=== PATIENT | female | born 1955 | race Caucasian/White ===

== ENCOUNTER 2017-12-06 18:52 | Inpatient (IN) ==
--- NOTE | 2017-12-06 19:56 | Emergency Department Report ---
General Adult HPI - General Chief complaint: Medical Clearance Stated complaint: generations clearance Time Seen by Provider: 12/06/17 19:46 Source: patient Mode of arrival: ambulatory Limitations: no limitations - History of Present Illness HPI narrative: 62-year-old female presents to the emergency department with the chief complaint of suicidal ideation with plan to overdose on sublingual nitroglycerin. She also notes paranoia. Patient has been explained to intermittent headaches for the past several weeks. She describes the headaches as mild. They are dull. No radiation. They are generalized. They come on gradually. She states she has a mild dull headache currently which is typical for her. She presents for medical clearance for admission to the [facility] facility. She notes that she has not taken her daily atenolol prior to arrival to the emergency department. She denies any self injury or self-harm. She denies homicidal ideation or plan. No other complaints or associated symptoms. She was at home when her symptoms began. Symptoms have been persistent in nature since onset. - Related Data Home Medications Medication Instructions Recorded Confirmed Aspirin/Dipyridamole 1 cap PO BID 12/06/17 12/06/17 [Aspirin-Dipyridam ER 25-200 mg] Diazepam [Valium] 2 mg PO BID 12/06/17 12/06/17 Hydrocodone/Acetaminophen 1 tab PO Q6HR 12/06/17 12/06/17 [Hydrocodon-Acetaminophn 10-325] Lisinopril/Hctz 20/12.5 [Prinzide 1 tab PO DAILY 12/06/17 12/06/17 20/12.5] Venlaflaxine XR [Effexor Xr] 75 mg PO DAILY 12/06/17 12/06/17 Allergies Allergy/AdvReac Type Severity Reaction Status Date / Time No Known Allergies Allergy Verified 12/06/17 19:45 Review of Systems Constitutional: Denies: fever, chills Eyes: Denies: eye pain, vision change ENT: Denies: ear pain, throat pain Cardiovascular: Denies: chest pain, palpitations Respiratory: Denies: cough, dyspnea Gastrointestinal: Denies: abdominal pain, nausea, vomiting, diarrhea Genitourinary: Denies: urgency, dysuria Musculoskeletal: Denies: back pain, arthralgia Integumentary: Denies: erythema, rash Neurological: Reports: headache (typical). Denies: numbness, paresthesias Psychiatric: Reports: depression, suicidal thoughts. Denies: anxiety, homicidal thoughts Endocrine: Denies: fatigue, heat or cold intolerance Hematological/Lymphatic: Denies: easy bruising, lymphadenopathy Allergic/Immunologic: Denies: facial swelling, urticaria PFSH Patient Stated Medical History Cerebrovascular Accident Yes Cataracts Yes Dental Problems Yes Hypertension Yes Gastroesophageal Reflux Yes Disease Hiatal Hernia Yes Hx Urinary Tract Infection Yes Clotting Problems Yes Osteoarthritis Yes Bipolar Disorder Yes Substance Use Disorder Yes Surgical History: Cataracts Family History: Reviewed and noncontributory. - Social History Smoking status: Never smoker Substance use type: does not use Alcohol intake frequency: does not drink Physical Exam - Limitations Limitations: no limitations - General General appearance: alert, in no apparent distress - Normal Exams: Head:: Normocephalic without trauma Eyes:: Pupils are PERRLA w/ EOMI, No scleral icterus, irritation, or foreign bodies noted ENMT:: No facial trauma, nasal exudates, pharyngeal erythema, or exudates are noted Dental: No fractured, loose, or missing teeth noted Neck:: Full range of motion, without adenopathy, JVD, bruits or thyromegaly Chest/Respirations:: Clear all hercules, with good airflow, and symmetry bilaterally Cardiovascular:: Regular rate and rhythm, without murmur or gallop, Pulses 2+ all extremities, capillary refill, <2 seconds all extremities Abdomen:: Bowel sounds positive, soft, non-tender, non-distended, no hepatosplenomegaly, masses or bruits noted Lymphatic:: No lymphadenopathy, or lymphedema noted Musculoskeletal:: No tenderness, or deformity noted, good range of motion, all extremities Integumentary:: No rashes, hives, or bruising noted, hair and nails, without abnormality Neurological:: Patient is alert, and oriented, cranial nerves, motor/sensory/ cerebellar, exams w/o gross deficits, to observation Psychiatric:: Patient exhibits (flat affect.) Course Vital Signs Temperature 98.5 F 12/06/17 19:25 Pulse Rate 88 12/06/17 19:25 Respiratory Rate 18 12/06/17 19:25 Blood Pressure 189/81 H 12/06/17 19:25 Pulse Oximetry 98 12/06/17 19:25 Temperature 98.6 F 12/07/17 00:45 Pulse Rate 64 12/07/17 03:43 Respiratory Rate 22 12/07/17 03:43 Blood Pressure 179/77 H 12/07/17 00:45 Pulse Oximetry 93 12/07/17 00:45 Medical Decision Making - [facility] Narrative Medical decision making narrative: Labs / imaging were discussed in detail with the patient and family and questions are answered. Patient is given her atenolol 25 mg by mouth 1 with improvement of hypertension. She declines offered analgesic pain medication in the emergency department. Patient is medically clear the emergency department for further evaluation and treatment in a psychiatric facility. Patient is accepted degenerations by Dr. Holloway. No further orders from accepting physician who is in agreement with the current plan of management. Patient is admitted to the generations unit in improved condition. - Differential Diagnosis depression, anxiety, suicidal ideation, metabolic disorder - Lab Data Result diagrams: 12/06/17 20:48 12/06/17 20:48 Lab Results 12/06/17 12/06/17 12/06/17 Range/Units 20:48 20:48 20:48 WBC 3.4 L (4.5-11.0) T/MM3 RBC 4.39 (4.00-5.20) M/MM3 Hgb 12.5 (12-16) GM/DL Hct 37.3 (36-46) % MCV 85.0 (80-100) UM3 MCH 28.5 (26-34) UUG MCHC 33.5 (31-37) GM/DL RDW Std Deviation 44.9 (36.9-50.2) FL Plt Count 89 L (130-400) T/MM3 MPV 8.9 L (9.4-12.4) UM3 Immature Gran % (Auto) 0.3 (0.0-0.5) % Neut % (Auto) 64.7 (33-66) % Lymph % (Auto) 27.0 (23-45) % [place] % (Auto) 6.8 (0-9.0) % Eos % (Auto) 1.2 (0-4) % Baso % (Auto) 0.0 (0-2) % Neut # (Auto) 2.2 (1.8-7.7) T/MM3 Lymph # (Auto) 0.9 L (1-4.8) T/MM3 [place] # (Auto) 0.2 (0-0.8) T/MM3 Eos # (Auto) 0.0 (0-0.5) T/MM3 Baso # (Auto) 0.0 (0-0.2) T/MM3 Abs Immat Gran (auto) 0.01 (0.00-0.03) T/MM3 Turbidity < 20 (0-20) Sodium 148 H (134-144) MEQ/L Potassium 3.5 L (3.6-5) MEQ/L Chloride 108 H (98-107) MEQ/L Carbon Dioxide 29 (22-30) MEQ/L Anion Gap 11 (5-15) meq/L BUN 20.0 H (7-17) MG/DL Creatinine 0.7 (0.7-1.2) mg/dL GFR Calculation 85 BUN/Creatinine Ratio 29 H (6-26) RATIO Glucose 122 H (65-110) MG/DL Calculated Osmolality 288 H (261-280) MOSM/KG Calcium 9.2 (8.4-10.2) MG/DL Total Bilirubin 0.60 (0.20-1.30) MG/DL Icterus Index < 2 (0-7) AST 36 (14-36) U/L ALT 17 (1-35) U/L Alkaline Phosphatase 192 H (38-126) U/L Troponin I < 0.012 (0-0.12) ng/ml Total Protein 7.9 (6.3-8.2) g/dL Albumin 3.7 (3.5-5.0) g/dL Globulin 4.2 H (2.4-3.6) G/DL Albumin/Globulin Ratio 0.9 L (1.1-2.2) RATIO Specimen Hemolysis < 15 (0-25) Ur Collection Type Urine, void-cc/notcc Urine Color Yellow (YELLOW) Urine Clarity Clear Urine pH 6.5 (5.0-8.0) Ur Specific [place] 1.020 (1.015-1.025) Urine Protein 1+ A (NEGATIVE) Urine Glucose (UA) Negative (NEGATIVE) Urine Ketones Negative (NEGATIVE) Urine Occult Blood 2+ A (NEGATIVE) Urine Nitrate Negative (NEGATIVE) Urine Bilirubin Negative (NEGATIVE) Urine Urobilinogen 1.0 (NORMAL) EU/DL Ur Leukocyte Esterase Negative (NEGATIVE) Urine RBC 5-10 H (0-3) /HPF Urine WBC None seen (0-5) /HPF Ur Squamous Epith Cells 0-5 Urine Bacteria Trace H (NEGATIVE) Ur Culture Indicated? Cult not indicated - Radiology Data CXR - No acute processes. CT head: Declined by patient. - EKG Data EKG #1 EKG results narrative: Sinus rhythm. 84 bpm. No STEMI. Disposition Clinical Impression: Suicidal ideation Disposition: 67 To [facility] Condition: Stable for Transport Time of Disposition: 21:47 (Admit. Dr. Holloway. ) - Seen By: physician
--- OUTSIDE RECORDS SUMMARY | 2017-12-06 20:04 | External Medical Summary | Continuity of Care Document ---
:1955 Author Organization [facility] There is no data. Medications There is no data. Problems Date Dx Attending Type Code Diagnosis Diagnosed By Coded 12/22/2016 F B1920 Unspecified viral hepatitis C without hepatic coma 12/22/2016 F I10 Essential (primary) hypertension 12/22/2016 F K7460 Unspecified cirrhosis of liver 12/22/2016 F R109 Unspecified abdominal pain 12/22/2016 F R42 Dizziness and giddiness 12/22/2016 F [id number] Other jail (current) drug therapy 12/22/2016 F Z8673 Personal history of transient ischemic attack (TIA), and cerebral infarction without residual deficits 09/28/2017 Samaria Amador.A., F 780.99 chronic pain [place] 09/28/2017 Jitendra Coley 780.99 chronic pain 09/28/2017 Jitendra Coley 780.99 chronic pain 09/28/2017 Jitendra Coley 780.99 chronic pain 09/28/2017 Samaria P.A., F 070.51 Hepatitis C [place] 09/28/2017 Samaria P.A., F V11.1 History of bipolar [place] disorder 09/28/2017 Samaria P.A., F 401.1 Essential [place] hypertension 09/28/2017 Samaria P.A., F 314.01 ADHD [place] 09/28/2017 Samaria P.A., F 300.02 Generalized anxiety [place] disorder 09/28/2017 Jitendra Coley 300.02 Generalized anxiety disorder 09/28/2017 Jitendra Coley 300.02 Generalized anxiety disorder 09/28/2017 Jitendra Coley 300.02 Generalized anxiety disorder 09/28/2017 Jitendra Coley 300.02 Generalized anxiety disorder 10/21/2017 Jitendra Coley 722.10 Lumbar radiculopathy Procedures Code [place] [address] Office visit - 09/28/2017 new pt, level 2 G8553 At least one 10/21/2017 Rx created at encounter was generated/sent electronically w/ a qualified [employer] system [id number] 10/21/2017 Office/outpatient visit; established patient, level 4 Results Test Result Range Urinalysis Dipstick - 11/16/13 16:02 U-BILI Negative Negative Clarity of Urine Slightly Cloudy Clear Color of Urine Yellow Yellow U-GLUC Negative g/dL Negative U-KET Negative Negative U-ARLINE Negative - Negative U-NIT Negative Negative pH of Urine 6.00 - 5.00 - 8.50 U-PRO Negative mg/dL Negative Specific gravity of Urine 1.020 1.005 - 1.030 URO 2.0 E.U./dL mg/dL Normal, .2-1 OCC BLO Small mg/dL Negative Microalbumin/Creat panel rando - 11/16/13 16:02 U-Creat 100 mg/dL 10 - 300 Microalbumin-Urine 30 mg/L 0 - 19 Microalbumin/Creatinine-Urine <30 CBC Auto Differential - 11/16/13 16:02 Basophils [count] 0.01 K/ul 0.00 - 0.20 Basophils [Pct] 0.3 % 0.00 - 2.50 Eosinophils [Pct] 1.3 % 0 - 7 Eosinophils [count] 0.05 K/ul 0.00 - 0.70 Lymphocytes [count] 1.16 K/ul 0.60 - 3.40 Lymphocytes [Pct] 29.4 % 10.00 - 50.00 Monocytes [count] 0.36 K/ul 0.00 - 0.90 Monocytes [Pct] 9.1 % 0.00 - 12.00 Neutrophils [count] 2.37 K/ul 0.20 - 6.90 Neutrophils [Pct] 59.9 % 37.00 - 80.00 RBC 4.54 M/uL 4.04 - 6.13 Hematocrit 34.5 % 37.70 - 53.70 Hemoglobin 11.3 g/dL 12.20 - 18.10 WBC 3.95 K/ul 4.60 - 10.20 Erythrocyte MCH 24.9 pg 27.00 - 31.20 Erythrocyte MCHC 32.8 g/dL 31.80 - 35.40 Erythrocyte MCV 76.0 fl 80.00 - 97.00 Platelets 116 K/ul 142.00 - 424.00 Erythrocyte MPV 9.3 fl 0.00 - 99.90 RDW 16.1 % 11.60 - 14.80 Comprehensive Metabolic Panel - 11/16/13 16:02 Albumin 3.2 g/dL 3.4 - 5.0 ALT 39 Units/L 12 - 78 AST 67 Units/L 15 - 37 TBili 0.7 mg/dL 0.0 - 1.0 BUN 14 mg/dL 7 - 18 Calcium 8.1 mg/dL 8.5 - 10.1 Bicarb 25.1 mmol/L 21.0 - 32.0 Chloride 104 mmol/L 98 - 107 Creat 0.96 mg/dL 0.6 - 1.3 "eGFR/1.73 sq M, white male" 86 - "eGFR/1.73 sq M, black male" 104 - "eGFR/1.73 sq M, white female" 64 - "eGFR/1.73 sq M, black female" 77 - Gluc 143 mg/dL 70 - 110 K 3.9 mmol/L 3.5 - 5.1 TPro 8.8 g/dL 6.4 - 8.2 Na 137 mmol/L 136 - 145 Age 58 Year(s) Alk Phos 139 Units/L 50 - 136 Lipid Panel - 11/16/13 16:02 Total/HDL Cholesterol Ratio 4.0 ratio 3.7 - 6.7 Cholesterol 119 mg/dL 0 - 199 Cholesterol in HDL 30 mg/dL 32 - 96 LDL Cholesterol 67.0 mg/dL 65 - 130 Trig 110 mg/dL 30 - 200 VLDL Choleserol 22 mg/dL 20 - 40 CPK - 11/16/13 16:02 CPK 50 Units/L 21 - 232 Thyroid Stimulating Hormone - 11/16/13 16:02 Thyroid Stimulating Hormone 0.392 u Unit(s)/mL 0.34 - 4.82 Hemoglobin A1C - 11/16/13 16:03 Hemoglobin A1C 6.6 % 4.5 - 6.2 Encounters ACCT No. Visit Discharge Status Pt. Type Provider Facility Loc./Unit Complaint Date/Time [id number] 12/22/2016 12/22/2016 DIS Emergency [place] 009 17:58:00 21:45:00 [facility] [id number] 11/09/2017 11/26/2017 DIS Outpatient Family Brijesh [facility] [id number] 13:26:30 18:50:25 Jitendra [facility] [id number] 10/29/2017 11/02/2017 DIS Outpatient Brijesh Family [facility] [id number] 14:10:11 08:53:56 Jitendra [facility] [id number] 10/21/2017 10/21/2017 DIS Outpatient Brijesh Family [facility] [id number] 15:34:20 16:31:22 Jitendra [facility] [id number] 10/21/2017 10/21/2017 DIS Outpatient Brijesh Family [facility] [id number] 15:34:20 16:31:11 Jitendra [facility] [id number] 09/28/2017 09/28/2017 DIS Outpatient Samaria Family [facility] [id number] 14:00:57 15:03:57 P.A., [facility] [id number] 01/18/2014 01/18/2014 [facility] Out[facility] [place] 15:00:00 23:59:59 [facility] [id number] 12/25/2013 12/25/2013 CLS Outpatient [place] [facility] 13:30:00 23:59:59 [facility] [id number] 12/14/2013 12/14/2013 CLS Outpatient [place] [facility] 14:30:00 23:59:59 [facility] [id number] 12/13/2013 12/13/2013 C[facility] Out[facility] [place] [facility] 14:00:00 23:59:59 [facility] [id number] 11/16/2013 11/16/2013 DIS Outpatient [place], ROCKY [place] 16:00:00 17:00:00 [facility] [id number] 11/16/2013 11/16/2013 DIS Outpatient [place] 15:13:00 16:13:00 [facility] [id number] 11/15/2013 11/15/2013 CLS Outpatient [place] 11:00:00 23:59:59 [facility] [id number] 11/09/2013 11/09/2013 CLS Outpatient [place] [facility] 13:00:00 23:59:59 [facility] [id number] 11/01/2013 11/01/2013 CLS Outpatient [place] [facility] 14:00:00 23:59:59 [facility] [id number] 10/19/2013 10/19/2013 DIS Outpatient ROCKY NASCIMENTO [facility] 15:00:00 16:00:00 [facility] [id number] 10/05/2013 10/05/2013 CLS Outpatient [place] [facility] 13:30:00 23:59:59 [facility]
--- OUTSIDE RECORDS SUMMARY | 2017-12-06 20:04 | External Medical Summary | Clinical Summary ---
:1955 Author Organization [facility] Address [address] [place] [address] Care Team Providers Name Role Phone Madhu Leigh MD Primary Care Provider Unavailable Hardeep Truong MD Unavailable Source Comments Some departments are not documenting in the electronic medical record. If you do not see the information that you expected, contact Release of Information in the Health Information Management department at [phone] for further assistance in locating additional records.[facility] Allergies No Known Allergies Current Medications Prescription Sig. Disp. Refills Start Date End Date Status verapamil SR (VERELAN) Take by mouth Active 240 mg C24P Daily. For blood pressure lisinopril/hydrochloroth Take 1 Dose by mouth Active iazide (ZESTORETIC) Daily. 20/25 tablet 1 Dose tramadol,+, (ULTRAM) 50 Take 50 mg by mouth Active mg tablet Every 6 Hours as needed for Pain. ibuprofen (MOTRIN) 200 Take 200 mg by mouth Active mg tablet Every 6 Hours as needed for Pain. Naproxen Sodium (ALEVE) Take by mouth As Active 220 mg Tab Needed. Prn for pain Social History Tobacco Use Types Packs/Day Years Used Date Never Assessed Sex Assigned at Date Recorded Not on file Last Filed Vital Signs Vital Sign Reading Time Taken Blood Pressure 178/82 02/14/2010 12:27 PM CDT Pulse 86 02/14/2010 12:27 PM CDT Temperature 37.1 C (98.8 F) 02/14/2010 8:10 AM CDT Respiratory Rate - - Oxygen Saturation 97% 02/14/2010 12:27 PM CDT Inhaled Oxygen Concentration - - Weight 65.8 kg (145 lb) 02/14/2010 8:10 AM CDT Height 154.9 cm (5' 1") 02/14/2010 8:10 AM CDT Body Mass Index 27.4 02/14/2010 8:10 AM CDT Plan of Treatment Health Maintenance Due Date Last Done Comments HEPATITIS C SCREENING 1955 PHYSICAL (COMPREHENSIVE) EXAM 1964 PERTUSSIS VACCINE 1968 HIV SCREENING 1972 TETANUS VACCINE 1974 CERVICAL CANCER SCREENING 1987 BREAST CANCER SCREENING 1997 COLORECTAL CANCER SCREENING 2007 SHINGLES VACCINE 2017 INFLUENZA VACCINE 05/09/2018
[2017-12-06] MEDS ORDERED: ATENOLOL 25 MG TABLET PO ONE (22:33)
[2017-12-07] MEDS ORDERED: HALOPERIDOL 0.5 MG TABLET PO PRN (00:57)
[2017-12-07] MEDS ORDERED: HALOPERIDOL 5 MG/ML INJECTION IM PRN (00:57)
[2017-12-07] MEDS: LORazepam 0.5 MG TABLET PO PRN ×2 (01:08→15:53)
[2017-12-07 01:53] VITALS: BMI 24.9
[2017-12-07] MEDS: HYDROCODONE/APAP 10 MG/325 MG TABLET PO SCH ×4 (02:17→21:06)
--- NOTE | 2017-12-07 08:33 | XRay Report ---
Indication: med. clearance PROCEDURE: XR chest 1V: Encounter: Initial Comparison: None FINDINGS: The lungs are clear. There is no abnormal airspace opacity, pleural effusion or pneumothorax identified. The heart size, pulmonary vasculature and mediastinum are within normal limits. No significant skeletal abnormality is seen. IMPRESSION: No acute cardiopulmonary abnormality. .
[2017-12-07] MEDS ORDERED: Venlaflaxine XR 75 MG CAPSULE (24hr) PO SCH (09:00)
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
[2017-12-07] MEDS: LISINOPRIL/HCTZ 20/12.5 MG TABLET PO SCH (10:12)
[2017-12-07] MEDS: ASPIRIN/DIPYRIDAMOLE 25 MG/200 MG CAPSULE PO SCH ×2 (10:12→21:05)
[2017-12-07] MEDS: DIAZEPAM 2 MG TABLET PO SCH ×2 (10:13→21:08)
--- NOTE | 2017-12-07 10:51 | History & Physical Report ---
History of Present Illness Date: 12/07/17 Chief complaint: depression, suidicial ideation HPI: Xiomara Ospina is a 62-year-old female patient of Dr. Jitendra Coley from [place], [place]. She reports that on 10/28/17, her PCP changed her medications, discontinuing her Adderall and starting Effexor to reportedly treat her bipolar , ADD and narcolepsy. She reports that since that time, she has had increasing depression which was made worse when she ran out of her [place] and Valium about 2 weeks ago and couldn't get a refill because her PCP was out of town. She reports increased depression with suicidal ideations including a plan to overdose on her nitroglycerine. In addition to her depression, she complains of paranoia, frequent tension headaches which are similar to prior headache as well as occasional nausea and vomiting which she believes is from the Effexor. Evaluation in the ED revealed leukopenia (WBC 3.4), thrombocytopenia (Plt 89), hypernatremia (Na 148) and hypokalemia (3.5). She has a known history of hypertension, cardiovascular disease with prior CVA in 2009, hepatitis C and chronic back pain secondary to lumbar radiculopathy. Due to her depression with suicidal ideations, she was accepted [facility] for further psychiatric evaluation and care. The hospitalist service was consulted for medical management. Review of Systems All systems PM: 10-point ROS was reviewed, no additional remarkable complaints except - Constitutional Constitutional: Absent: chills, fatigue, fever(s), weakness - EENMT Eyes: Absent: change in vision, loss of vision Ears: Absent: ear pain Balance: Absent: vertigo, falling to one side Nose: Absent: nosebleeds Mouth/Throat: Absent: sore throat, changes in swallowing, dry mouth - Cardiovascular Cardiovascular: Absent: chest pain, palpitations, syncope, dyspnea on exertion, orthopnea, edema Rhythm: Present: regular rhythm Vascular: Absent: pallor of an extermity, pedal edema, unilateral swelling - Respiratory Respiratory: Absent: cough, dyspnea, hemoptysis, dyspnea on exertion, wheezing - Gastrointestinal Gastrointestinal: Present: nausea. Absent: abdominal pain, change in bowel habits, constipation, diarrhea, melena, vomiting - Genitourinary Genitourinary: Absent: dysuria, flank pain, hematuria Menstruation: post menopausal - Musculoskeletal Musculoskeletal: Present: back pain (chronic). Absent: abnormal gait, deformity , muscle weakness - Integumentary/Breasts Integumentary: Absent: rash - Neurological Neurological: Absent: confusion, dizziness, focal weakness, vertigo, weakness - Psychiatric Psychiatric: Present: anhedonia, anxiety, depression, paranoia, suicidal ideation - Endocrine Endocrine: Absent: flushing, heat intolerance, palpitations - Hematologic/Lymphatic Hematologic/Lymphatic: Absent: easy bruising - Allergic/Immunologic Allergic/Immunologic: Absent: seasonal rhinorrhea Past Medical History Medical History Updates: Hypertension. Cardiovascular disease. History of CVA - 2009. GERD. Osteoarthritis. Bipolar disorder. Polysubstance use disorder. Tobacco dependency. Hepatitis C - diagnosed 2007. Chronic back pain. Lumbar radiculopathy. Severe depression. Cataracts. Surgical History: Birthmark removed from left face. Bilateral tubal ligation - 1985. x 1 - 1983. Family History Updates: Father - , bone tumor. Mother - , hypertension, diabetes, hypothyroidism. Brother - , CVA, diabetes. Family History: As Above - Social History Smoking status: Current every day smoker Packs per day: 1 Packs-years: 40 second hand exposure: Yes Substance use type: marijuana Alcohol intake frequency: does not drink Housing: house Household members: none Current occupational status: unemployed Current residence: Apartment/Private Home Social history: PCP - Dr. Geovanni Coley. Medications Home Medications Medication Instructions Recorded Confirmed Type Aspirin/Dipyridamole 1 cap PO BID 12/06/17 12/06/17 History [Aspirin-Dipyridam ER 25-200 mg] Diazepam [Valium] 2 mg PO BID 12/06/17 12/06/17 History Hydrocodone/Acetaminophen 1 tab PO Q6HR 12/06/17 12/06/17 History [Hydrocodon-Acetaminophn 10-325] Lisinopril/Hctz 20/12.5 [Prinzide 1 tab PO DAILY 12/06/17 12/06/17 History 20/12.5] Venlaflaxine XR [Effexor Xr] 75 mg PO DAILY 12/06/17 12/06/17 History Allergies Allergy/AdvReac Type Severity Reaction Status Date / Time No Known Allergies Allergy Verified 12/06/17 19:45 Exam Vital Signs: Temperature 97.2 F 12/07/17 08:00 Pulse Rate 71 12/07/17 08:00 Respiratory Rate 18 12/07/17 08:00 Blood Pressure 159/74 H 12/07/17 08:00 Pulse Oximetry 98 12/07/17 08:00 Height/Weight/BMI: Height 5 ft 2 in Weight 136 lb 3.931 oz Body Mass Index 24.9 Comments: Patient is seen while sitting in the day room, looking out the windows. - Constitutional Present: no acute distress, well nourished, well developed, cooperative - Routine HEENT Exam Head: Present: normocephalic, atraumatic Eye: Present: PERRL. Absent: conjunctival icterus ENT: Present: mucous membranes dry, oropharynx clear Comments: Poor dentition. - Routine Neck Exam Present: supple, full ROM, trachea midline - Routine Chest/Breast/Axilla Exam Chest wall: Absent: pacemaker - Routine Respiratory Exam Present: CTA bilaterally. Absent: respiratory distress, wheezes - Routine Cardiovascular Exam Present: RRR, S1, S2, no murmur - Routine Abdominal Exam Present: soft, normoactive bowel sounds, non distended, non tender - Routine Extremities Exam Present: no edema, non tender, full ROM, pulses intact - Routine Back/Spine/Pelvis Exam Back/Spine: Present: full ROM. Absent: vertebral tenderness - Routine Skin Exam Present: intact, dry, warm Comments: Afebrile. - Routine Neurological Exam Present: alert, oriented X3, moving all extremities, hearing grossly intact, normal speech - Routine Psychiatric Exam Present: cooperative Results - Labs CBC & Chem 7: 12/06/17 20:48 12/06/17 20:48 Assessment and Plan Assessment and Plan: Assessment: Severe depression. Paranoia. Suicidal ideation. Leukopenia - present on admission. Thrombocytopenia - present on admission. Hypernatremia - present on admission. Hypokalemia - present on admission. Bipolar disorder. Polysubstance use disorder. Hypertension. History of CVA - 2009. GERD. Osteoarthritis. Polysubstance use disorder. Tobacco dependency. Hepatitis C - diagnosed 2007. Chronic back pain. Lumbar radiculopathy. Plan - 12/07/17: Agree with admission to [facility] for further psychiatric evaluation and care. Hospitalist service consulted for medical management. Provide safe and supportive environment. Monitor closely given suicidal ideation. Suspect leukopenia and thrombocytopenia are chronic secondary to chronic hepatitis. Will monitor periodically throughout admission. Encourage oral fluid intake given hypernatremia. KCl 20 mEq po given now for hypokalemia. Recheck BMP in AM. Nicorette gum provided per patient request. She refused patch. Continue home aggrenox, atenolol, lisinopril/hctz. Monitor blood pressure closely. Blood pressure elevated since admission - continue to monitor as patient had not received her medications during prior readings. B12 and folate pending. Will check TSH in AM. Upon discharge, patient's care will be returned to her PCP, Dr. Coley. Patient is a full code. GI Prophylaxis: Protonix Resuscitation Status: Full Code - Time spent with patient Time with patient PN: 50 minutes - Physician Narrative Physician: Rob Trammell MD Narrative: Date: 12/07/17 Time: 1041 Hospital Course Summary Disclaimer: The visit summary below is not to be considered part of the above Progress Note. Hospital Course: Plan - 12/07/17: Agree with admission to [facility] for further psychiatric evaluation and care. Hospitalist service consulted for medical management. Provide safe and supportive environment. Monitor closely given suicidal ideation. Suspect leukopenia and thrombocytopenia are chronic secondary to chronic hepatitis. Will monitor periodically throughout admission. Encourage oral fluid intake given hypernatremia. KCl 20 mEq po given now for hypokalemia. Recheck BMP in AM. Nicorette gum provided per patient request. She refused patch. Continue home aggrenox, atenolol, lisinopril/hctz. Monitor blood pressure closely. Blood pressure elevated since admission - continue to monitor as patient had not received her medications during prior readings. B12 and folate pending. Will check TSH in AM. Upon discharge, patient's care will be returned to her PCP, Dr. Coley. Patient is a full code.
[2017-12-07] MEDS ORDERED: SENNA + DOCUSATE TABLET PO PRN (11:07)
[2017-12-07] MEDS ORDERED: IBUPROFEN 600 MG TABLET PO PRN (11:07)
[2017-12-08] MEDS: HYDROCODONE/APAP 10 MG/325 MG TABLET PO SCH ×5 (05:46→21:23)
[2017-12-08] MEDS: PANTOPRAZOLE 20 MG TABLET PO SCH (06:25)
[2017-12-08] MEDS ORDERED: Venlaflaxine XR 75 MG CAPSULE (24hr) PO SCH (08:00)
[2017-12-08] MEDS: LISINOPRIL/HCTZ 20/12.5 MG TABLET PO SCH (08:14)
[2017-12-08] MEDS: DIAZEPAM 2 MG TABLET PO SCH (08:14)
[2017-12-08] MEDS: ASPIRIN/DIPYRIDAMOLE 25 MG/200 MG CAPSULE PO SCH ×3 (08:14→21:22)
[2017-12-08] MEDS: POLYETHYL GLYCOL 3350 17gm PACKET PO SCH (08:16)
[2017-12-08] MEDS: LORazepam 0.5 MG TABLET PO SCH ×2 (19:53→21:23)
--- NOTE | 2017-12-08 22:07 | Neuropsych Progress Note ---
[facility] Subjective Date: 12/09/17 - Sujective/Severity of Illness Medications: Hydrocodone Bitart/Acetaminophen ([place] 10/325) 1 tab PO Q6HR [facility] Last Admin: 12/08/17 21:23 Dose: Not Given Dipyridamole/Aspirin (Aggrenox) 1 cap PO BID [facility] Last Admin: 12/08/17 21:22 Dose: Not Given Lisinopril/HCTZ (Prinzide 20/12.5) 1 tab PO DAILY [facility] Last Admin: 12/08/17 08:14 Dose: 1 tab Haloperidol (Haldol) 0.5 mg PO Q6H PRN PRN Reason: Extreme agitation Haloperidol Lactate (Haldol) 0.5 mg IM Q6H PRN PRN Reason: Extreme agitation Ibuprofen (Motrin) 600 mg PO Q8H PRN PRN Reason: Pain Lorazepam (Ativan) 0.5 mg PO Q6H PRN PRN Reason: Extreme agitation Last Admin: 12/07/17 15:53 Dose: 0.5 mg Lorazepam (Ativan Inj) 0.5 mg IM Q6H PRN PRN Reason: Extreme agitation Lorazepam (Ativan) 0.5 mg PO BID [facility] Last Admin: 12/08/17 21:23 Dose: Not Given Magnesium Hydroxide (Mom) 30 ml PO DAILY PRN PRN Reason: Constipation Nicotine Polacrilex (Nicorette) 2 mg BC Q1H PRN Last Admin: 12/08/17 12:58 Dose: 2 mg Pantoprazole Sodium (Protonix) 20 mg PO ACB [facility] Last Admin: 12/08/17 06:25 Dose: 20 mg Polyethylene Glycol (Miralax) 17 gm PO DAILY [facility] Last Admin: 12/08/17 08:16 Dose: Not Given Senna/Docusate Sodium (Senna Plus Tablet) 1 tab PO BID PRN PRN Reason: Constipation Venlafaxine HCl (Effexor Xr) 37.5 mg PO WB [facility] Subjective: Patient seen and chart reviewed. Case discussed with treatment team. Patient reports that she continues to feel depressed, though she has a bright affect at times and seems to enjoy socializing with others, both staff and peers. She does talk to me about concerns about her liver and untreated hepatitis, and how this may be affecting her brain. This does not sound necessarily delusional but more that she has difficulty making sense of what various medical technical writer have told her about her health. She complains of pain in her mid- back and chronic lower back pain, and she requests Lidocaine patches for this. Patient continues to endorse frequent suicidal thoughts though she does not want to . Nursing staff report patient has not had any significant behaviors on the unit. She has not required any psychotropic PRN medications. Patient is eating well. VSS. Start Time: 14:20 Stop Time: 14:40 Mental Status Exam Vitals: Last Vital Signs Temp 97.3 F 12/08/17 19:19 Pulse 75 12/08/17 19:19 Resp 20 12/08/17 19:19 BP 159/72 H 12/08/17 19:19 Pulse Ox 97 12/08/17 19:19 Height: 1.57 m Weight: 61.8 kg - Mental Status Exam Muscle Strength/Tone: Normal Dressing: Casual Grooming: Disheveled Attitude: Cooperative Motor Activity: Normal Eye Contact: Good Speech: Other (Very talkative, not pressured - unclear what baseline is) Volume: Normal Rhythm: Appropriate Rhythm Orientation: Oriented X4 Mood: Depressed Affect: Relaxed Rate of Thoughts: Appropriate Rate Thought Organization: Organized Associations: Intact Abstract Reasoning: Intact, able to abstract Thought Content: Somatic Concerns Perception/Psychotic: Perception Normal Language: Naming Intact Fund of Knowledge: Cookie aware current events Memory: Grossly Intact Suicidal Ideation: Persistent, Plan (OD on sublingual nitro) Insight: Limited Judgement: Limited Impulse Control: Fair - Laboratory Result Diagrams: 12/08/17 07:15 12/08/17 07:15 Laboratory Results - last 24 hr 12/08/17 12/08/17 07:15 07:15 WBC 3.3 L RBC 4.07 Hgb 11.6 L Hct 35.1 L MCV 86.2 MCH 28.5 MCHC 33.0 RDW Std Deviation 46.1 Plt Count 86 L MPV 10.1 Immature Gran % (Auto) 0.3 Neut % (Auto) 56.0 Lymph % (Auto) 33.0 Ward % (Auto) 7.6 Eos % (Auto) 2.8 Baso % (Auto) 0.3 Neut # (Auto) 1.8 Lymph # (Auto) 1.1 Ward # (Auto) 0.3 Eos # (Auto) 0.1 Baso # (Auto) 0.0 Abs Immat Gran (auto) 0.01 Turbidity < 20 Sodium 142 D Potassium 5.0 D Chloride 109 H Carbon Dioxide 27 Anion Gap 6 BUN 21.0 H Creatinine 0.7 GFR Calculation 85 BUN/Creatinine Ratio 30 H Glucose 104 Calculated Osmolality 276 Calcium 9.1 Icterus Index < 2 TSH 0.02 L Specimen Hemolysis 166 H Assessment and Plan (1) Suicidal ideation Current visit: Yes Status: Acute (2) Depressive disorder Problem details: R/O MDD, recurrent, severe, with psychotic features R/O Bipolar disorder, MRE depressed, with psychotic features Current visit: Yes Status: Acute Decrease Effexor XR to 37.5mg PO as patient believes it is causing her HAs and concern for bipolar disorder. Have discussed possibility of Li as patient reports hx of extreme anger, persistent/chronic SI. Hospital Course Summary Disclaimer: The visit summary below is not to be considered part of the above Progress Note. Hospital Course: Plan - 12/07/17: Agree with admission to [facility] for further psychiatric evaluation and care. Hospitalist service consulted for medical management. Provide safe and supportive environment. Monitor closely given suicidal ideation. Suspect leukopenia and thrombocytopenia are chronic secondary to chronic hepatitis. Will monitor periodically throughout admission. Encourage oral fluid intake given hypernatremia. KCl 20 mEq po given now for hypokalemia. Recheck BMP in AM. Nicorette gum provided per patient request. She refused patch. Continue home aggrenox, atenolol, lisinopril/hctz. Monitor blood pressure closely. Blood pressure elevated since admission - continue to monitor as patient had not received her medications during prior readings. B12 and folate pending. Will check TSH in AM. Upon discharge, patient's care will be returned to her PCP, Dr. Coley. Patient is a full code. 12/08/17 Psych: Decrease Effexor XR to 37.5mg PO as patient believes it is causing her HAs and concern for bipolar disorder. Have discussed possibility of Li as patient reports hx of extreme anger, persistent/chronic SI.
[2017-12-09] MEDS ORDERED: Venlafaxine XR 37.5 MG CAPSULE (24hr) PO SCH (08:00)
[2017-12-09] MEDS: HYDROCODONE/APAP 10 MG/325 MG TABLET PO SCH ×4 (08:01→21:44)
[2017-12-09] MEDS: PANTOPRAZOLE 20 MG TABLET PO SCH (08:03)
[2017-12-09] MEDS: LISINOPRIL/HCTZ 20/12.5 MG TABLET PO SCH (08:07)
[2017-12-09] MEDS: ASPIRIN/DIPYRIDAMOLE 25 MG/200 MG CAPSULE PO SCH ×2 (08:08→21:44)
[2017-12-09] MEDS: LORazepam 0.5 MG TABLET PO SCH ×2 (08:08→21:43)
[2017-12-09] MEDS: POLYETHYL GLYCOL 3350 17gm PACKET PO SCH (08:10)
[2017-12-09] MEDS ORDERED: LITHIUM CARBONATE 150 MG CAPSULE PO SCH (18:00)
--- NOTE | 2017-12-09 20:01 | Neuropsych Progress Note ---
[facility] Subjective Date: 12/09/17 - Sujective/Severity of Illness Medications: Hydrocodone Bitart/Acetaminophen ([place] 10/325) 1 tab PO Q6HR [facility] Last Admin: 12/09/17 15:37 Dose: 1 tab Dipyridamole/Aspirin (Aggrenox) 1 cap PO BID [facility] Last Admin: 12/09/17 08:08 Dose: 1 cap Lisinopril/HCTZ (Prinzide 20/12.5) 1 tab PO DAILY [facility] Last Admin: 12/09/17 08:07 Dose: 1 tab Haloperidol (Haldol) 0.5 mg PO Q6H PRN PRN Reason: Extreme agitation Haloperidol Lactate (Haldol) 0.5 mg IM Q6H PRN PRN Reason: Extreme agitation Ibuprofen (Motrin) 600 mg PO Q8H PRN PRN Reason: Pain [place] Carbonate ([place]) 150 mg PO 18 [facility] Last Admin: 12/09/17 17:38 Dose: 150 mg Lorazepam (Ativan) 0.5 mg PO Q6H PRN PRN Reason: Extreme agitation Last Admin: 12/07/17 15:53 Dose: 0.5 mg Lorazepam (Ativan Inj) 0.5 mg IM Q6H PRN PRN Reason: Extreme agitation Lorazepam (Ativan) 0.5 mg PO BID [facility] Last Admin: 12/09/17 08:08 Dose: 0.5 mg Magnesium Hydroxide (Mom) 30 ml PO DAILY PRN PRN Reason: Constipation Nicotine (Nicoderm) 14 mg TD DAILY [facility] Nicotine (Nicotine Patch Removal) 1 removal TD DAILY [facility] Nicotine Polacrilex (Nicorette) 2 mg BC Q1H PRN Last Admin: 12/09/17 19:49 Dose: 2 mg Pantoprazole Sodium (Protonix) 20 mg PO ACB [facility] Last Admin: 12/09/17 08:03 Dose: Not Given Polyethylene Glycol (Miralax) 17 gm PO DAILY [facility] Last Admin: 12/09/17 08:10 Dose: 17 gm Senna/Docusate Sodium (Senna Plus Tablet) 1 tab PO BID PRN PRN Reason: Constipation Subjective: Patient seen and chart reviewed. Case discussed with treatment team. Patient reports that she continues to feel depressed, though she has a bright affect at times and seems to enjoy socializing with others, both staff and peers. She is less somatically focused today but is quite needy, calling me back for additional concerns repeatedly even after interview ends. She is tolerating decrease in Effexor well and has no noticeable change in mood. Patient continues to endorse frequent suicidal thoughts though she does not want to . Nursing staff report patient became agitated last night but this seemed to be primarily due to a misunderstanding with RN over nicotine gum. Patient admits she does have a hx of anger issues. She has not required any psychotropic PRN medications. Patient is eating well. VSS. Start Time: 14:40 Stop Time: 15:00 Mental Status Exam Vitals: Last Vital Signs Temp 98.2 F 12/09/17 16:00 Pulse 79 12/09/17 16:00 Resp 18 12/09/17 16:00 BP 158/70 H 12/09/17 16:00 Pulse Ox 97 12/09/17 16:00 Height: 1.57 m Weight: 61.8 kg - Mental Status Exam Muscle Strength/Tone: Normal Dressing: Casual Grooming: Disheveled Attitude: Cooperative Motor Activity: Normal Eye Contact: Good Speech: Other (Very talkative, not pressured - unclear what baseline is) Volume: Normal Rhythm: Appropriate Rhythm Orientation: Oriented X4 Mood: Depressed Affect: Relaxed Rate of Thoughts: Appropriate Rate Thought Organization: Organized Associations: Intact Abstract Reasoning: Intact, able to abstract Thought Content: Somatic Concerns Perception/Psychotic: Perception Normal Current Hallucinations: Visual (shadows), Auditory, Other (Does not appear to be responding to internal stimuli though reports this) Language: Naming Intact Fund of Knowledge: Cookie aware current events Memory: Grossly Intact Suicidal Ideation: Persistent, Plan (OD on sublingual nitro) Homicidal Ideation: Denies Insight: Limited Judgement: Limited Impulse Control: Fair - Laboratory Result Diagrams: 12/08/17 07:15 12/08/17 07:15 Assessment and Plan (1) Suicidal ideation Current visit: Yes Status: Acute (2) Depressive disorder Problem details: R/O MDD, recurrent, severe, with psychotic features R/O Bipolar disorder, MRE depressed, with psychotic features Current visit: Yes Status: Acute SLUMS completed and patient scored 29/30. Will order Lidocaine patch for lower back, nicotine patch in addition to gum per patient request. Plan to discontinue Effexor tomorrow, start [place] 150mg PO daily at dinnertime. Hospital Course Summary Disclaimer: The visit summary below is not to be considered part of the above Progress Note. Hospital Course: Plan - 12/07/17: Agree with admission to [facility] for further psychiatric evaluation and care. Hospitalist service consulted for medical management. Provide safe and supportive environment. Monitor closely given suicidal ideation. Suspect leukopenia and thrombocytopenia are chronic secondary to chronic hepatitis. Will monitor periodically throughout admission. Encourage oral fluid intake given hypernatremia. KCl 20 mEq po given now for hypokalemia. Recheck BMP in AM. Nicorette gum provided per patient request. She refused patch. Continue home aggrenox, atenolol, lisinopril/hctz. Monitor blood pressure closely. Blood pressure elevated since admission - continue to monitor as patient had not received her medications during prior readings. B12 and folate pending. Will check TSH in AM. Upon discharge, patient's care will be returned to her PCP, Dr. Coley. Patient is a full code. 12/08/17 Psych: Decrease Effexor XR to 37.5mg PO as patient believes it is causing her HAs and concern for bipolar disorder. Have discussed possibility of Li as patient reports hx of extreme anger, persistent/chronic SI. 12/09/17 Psych: SLUMS completed and patient scored 29/30. Will order Lidocaine patch for lower back, nicotine patch in addition to gum per patient request. Plan to discontinue Effexor tomorrow, start [place] 150mg PO daily at dinnertime.
[2017-12-10] MEDS: HYDROCODONE/APAP 10 MG/325 MG TABLET PO SCH ×3 (03:38→14:51)
[2017-12-10] MEDS: PANTOPRAZOLE 20 MG TABLET PO SCH (07:32)
[2017-12-10] MEDS: ASPIRIN/DIPYRIDAMOLE 25 MG/200 MG CAPSULE PO SCH ×2 (08:53→21:27)
[2017-12-10] MEDS: NICOTINE 14 MG PATCH TD SCH (08:53)
[2017-12-10] MEDS: LISINOPRIL/HCTZ 20/12.5 MG TABLET PO SCH (08:57)
[2017-12-10] MEDS: LIDOCAINE 5% PATCH TOP SCH (08:57)
[2017-12-10] MEDS: LORazepam 0.5 MG TABLET PO SCH ×2 (09:02→21:26)
[2017-12-10] MEDS: POLYETHYL GLYCOL 3350 17gm PACKET PO SCH (09:03)
[2017-12-10] MEDS: NICOTINE PATCH REMOVAL TD SCH (09:04)
--- NOTE | 2017-12-10 15:47 | Neuropsych Progress Note ---
[facility] Subjective Date: 12/23/17 - Sujective/Severity of Illness Medications: Hydrocodone Bitart/Acetaminophen ([place] 10/325) 1 tab PO Q6HR [facility] Last Admin: 12/10/17 14:51 Dose: 1 tab Dipyridamole/Aspirin (Aggrenox) 1 cap PO BID [facility] Last Admin: 12/10/17 08:53 Dose: 1 cap Lisinopril/HCTZ (Prinzide 20/12.5) 1 tab PO DAILY [facility] Last Admin: 12/10/17 08:57 Dose: 1 tab Haloperidol (Haldol) 0.5 mg PO Q6H PRN PRN Reason: Extreme agitation Haloperidol Lactate (Haldol) 0.5 mg IM Q6H PRN PRN Reason: Extreme agitation Lidocaine (Lidoderm) 1 patch TOP DAILY [facility] Last Admin: 12/10/17 08:57 Dose: 1 patch Lidocaine HCl/Dextrose (Lidoderm Patch Removal) 1 removal TOP 2100 [facility] [place] Carbonate ([place]) 150 mg PO 18 [facility] Last Admin: 12/09/17 17:38 Dose: 150 mg Lorazepam (Ativan) 0.5 mg PO Q6H PRN PRN Reason: Extreme agitation Last Admin: 12/07/17 15:53 Dose: 0.5 mg Lorazepam (Ativan Inj) 0.5 mg IM Q6H PRN PRN Reason: Extreme agitation Lorazepam (Ativan) 0.5 mg PO BID [facility] Last Admin: 12/10/17 09:02 Dose: 0.5 mg Magnesium Hydroxide (Mom) 30 ml PO DAILY PRN PRN Reason: Constipation Nicotine (Nicoderm) 14 mg TD DAILY [facility] Last Admin: 12/10/17 08:53 Dose: 14 mg Nicotine (Nicotine Patch Removal) 1 removal TD DAILY [facility] Last Admin: 12/10/17 09:04 Dose: Not Given Nicotine Polacrilex (Nicorette) 2 mg BC Q1H PRN Last Admin: 12/10/17 10:30 Dose: 2 mg Pantoprazole Sodium (Protonix) 20 mg PO ACB [facility] Last Admin: 12/10/17 07:32 Dose: 20 mg Polyethylene Glycol (Miralax) 17 gm PO DAILY [facility] Last Admin: 12/10/17 09:03 Dose: 17 gm Senna/Docusate Sodium (Senna Plus Tablet) 1 tab PO BID PRN PRN Reason: Constipation Subjective: Patient seen and chart reviewed. Case discussed with treatment team. Patient reports that she continues to feel depressed, though she has a bright affect at times and seems to enjoy socializing with others, both staff and peers. She is less somatically focused today but is quite needy. She feels she is tolerating lithium well after first dose. Patient reports that suicidal thoughts have decreased since admission. Nursing staff report patient has not had any significant behaviors on the unit in the past 24 hours. She has not required any psychotropic PRN medications. Patient is eating well. VSS. Start Time: 16:00 Stop Time: 16:20 Mental Status Exam Vitals: Last Vital Signs Temp 97.6 F 12/10/17 08:00 Pulse 84 12/10/17 08:00 Resp 16 12/10/17 08:00 BP 144/76 H 12/10/17 08:00 Pulse Ox 99 12/10/17 08:00 Height: 1.57 m Weight: 61.8 kg - Mental Status Exam Muscle Strength/Tone: Normal Dressing: Casual Grooming: Disheveled Attitude: Cooperative Motor Activity: Normal Eye Contact: Good Speech: Other (Very talkative, not pressured - unclear what baseline is) Volume: Normal Rhythm: Appropriate Rhythm Orientation: Oriented X4 Mood: Neutral Affect: Relaxed Rate of Thoughts: Appropriate Rate Thought Organization: Organized Associations: Intact Abstract Reasoning: Intact, able to abstract Thought Content: Somatic Concerns Perception/Psychotic: Perception Normal Current Hallucinations: Visual (shadows), Auditory, Other (Does not appear to be responding to internal stimuli though reports this) Language: Naming Intact Fund of Knowledge: Cookie aware current events Memory: Grossly Intact Suicidal Ideation: Persistent, Plan (OD on sublingual nitro) Homicidal Ideation: Denies Insight: Limited Judgement: Limited Impulse Control: Fair - Laboratory Result Diagrams: 12/12/17 16:37 12/12/17 16:37 Laboratory Results - last 24 hr 12/07/17 12/08/17 06:55 07:15 Vitamin B12 276 Folate 9.1 Free T4 0.97 Assessment and Plan (1) Suicidal ideation Status: Acute (2) Depressive disorder Problem details: R/O MDD, recurrent, severe, with psychotic features R/O Bipolar disorder, MRE depressed, with psychotic features Status: Acute Continue current care; [place] started last night. Hospital Course Summary Disclaimer: The visit summary below is not to be considered part of the above Progress Note. Hospital Course: Plan - 12/07/17: Agree with admission to [facility] for further psychiatric evaluation and care. Hospitalist service consulted for medical management. Provide safe and supportive environment. Monitor closely given suicidal ideation. Suspect leukopenia and thrombocytopenia are chronic secondary to chronic hepatitis. Will monitor periodically throughout admission. Encourage oral fluid intake given hypernatremia. KCl 20 mEq po given now for hypokalemia. Recheck BMP in AM. Nicorette gum provided per patient request. She refused patch. Continue home aggrenox, atenolol, lisinopril/hctz. Monitor blood pressure closely. Blood pressure elevated since admission - continue to monitor as patient had not received her medications during prior readings. B12 and folate pending. Will check TSH in AM. Upon discharge, patient's care will be returned to her PCP, Dr. Coley. Patient is a full code. 12/08/17 Psych: Decrease Effexor XR to 37.5mg PO as patient believes it is causing her HAs and concern for bipolar disorder. Have discussed possibility of Li as patient reports hx of extreme anger, persistent/chronic SI. 12/09/17 Psych: SLUMS completed and patient scored 29/30. Will order Lidocaine patch for lower back, nicotine patch in addition to gum per patient request. Plan to discontinue Effexor tomorrow, start [place] 150mg PO daily at dinnertime.
[2017-12-10] MEDS: LITHIUM CARBONATE 300 MG CAPSULE PO SCH (17:47)
[2017-12-10] MEDS: LORazepam 0.5 MG TABLET PO PRN (21:27)
[2017-12-11] MEDS: LORazepam 0.5 MG TABLET PO PRN (00:04)
[2017-12-11] MEDS: PANTOPRAZOLE 20 MG TABLET PO SCH (06:23)
[2017-12-11] MEDS: HYDROCODONE/APAP 7.5 MG/325 MG TABLET PO PRN ×2 (06:35→18:31)
[2017-12-11] MEDS: LIDOCAINE PATCH REMOVAL TOP SCH ×2 (09:15→21:42)
[2017-12-11] MEDS: LIDOCAINE 5% PATCH TOP SCH (09:27)
[2017-12-11] MEDS: ASPIRIN/DIPYRIDAMOLE 25 MG/200 MG CAPSULE PO SCH ×2 (09:27→20:26)
[2017-12-11] MEDS: LISINOPRIL/HCTZ 20/12.5 MG TABLET PO SCH (09:28)
[2017-12-11] MEDS: NICOTINE 14 MG PATCH TD SCH (09:28)
[2017-12-11] MEDS: POLYETHYL GLYCOL 3350 17gm PACKET PO SCH ×2 (09:29→11:00)
[2017-12-11] MEDS: NICOTINE PATCH REMOVAL TD SCH (09:29)
[2017-12-11] MEDS: LORazepam 0.5 MG TABLET PO SCH ×2 (09:33→20:26)
--- NOTE | 2017-12-11 10:24 | Progress Note ---
- Date 12/11/17 Subjective: Patient is seen today eating breakfast. She reports that she has pain in her back and her hip, but this is nothing new for her. Her appetite is good. She reports there is one particular nurse that she does not like when the nurses here she does not sleep well. She denies chest pain, shortness of breath, nausea and vomiting. Nurses have no current concerns. Objective Vital signs: Temperature 98.2 F 12/11/17 08:00 Pulse Rate 88 12/11/17 08:00 Respiratory Rate 16 12/11/17 08:00 Blood Pressure 162/73 H 12/11/17 08:00 Pulse Oximetry 98 12/11/17 08:00 Height/Weight/BMI: Height 1.57 m Weight 61.8 kg Body Mass Index 24.9 - Constitutional Present: no acute distress, well nourished, well developed - Routine HEENT Exam Head: Present: normocephalic, atraumatic - Routine Respiratory Exam Present: CTA bilaterally. Absent: wheezes - Routine Cardiovascular Exam Present: RRR, no murmur - Routine Abdominal Exam Present: soft, non distended, non tender - Routine Extremities Exam Present: no edema, normal capillary refill - Routine Skin Exam Present: dry, warm - Routine Neurological Exam Present: alert - Routine Lymphatic Exam Lymphatic: Absent: adenopathy - Routine Psychiatric Exam Present: normal affect, cooperative Results - Labs CBC & Chem 7: 12/08/17 07:15 12/08/17 07:15 Assessment and Plan Assessment and Plan: Assessment: Severe depression. Paranoia. Suicidal ideation. Leukopenia - present on admission. Thrombocytopenia - present on admission. Hypernatremia - present on admission. Hypokalemia - present on admission. Bipolar disorder. Polysubstance use disorder. Hypertension. History of CVA - 2009. GERD. Osteoarthritis. Polysubstance use disorder. Tobacco dependency. Hepatitis C - diagnosed 2007. Chronic back pain. Lumbar radiculopathy. Plan Her blood pressures have been elevated during her entire stay. Will double her lisinopril/HCTZ. Continue to monitor pressures, follow BMP. Repeat CBC in the a.m. to follow thrombocytopenia and leukopenia. Reviewed labs, vital signs, psychiatric notes and nurse's notes. - Physician Narrative Narrative: Date: 12/11/17 Time: 1020 Hospital Course Summary Disclaimer: The visit summary below is not to be considered part of the above Progress Note. Hospital Course: Plan - 12/07/17: Agree with admission to [facility] for further psychiatric evaluation and care. Hospitalist service consulted for medical management. Provide safe and supportive environment. Monitor closely given suicidal ideation. Suspect leukopenia and thrombocytopenia are chronic secondary to chronic hepatitis. Will monitor periodically throughout admission. Encourage oral fluid intake given hypernatremia. KCl 20 mEq po given now for hypokalemia. Recheck BMP in AM. Nicorette gum provided per patient request. She refused patch. Continue home aggrenox, atenolol, lisinopril/hctz. Monitor blood pressure closely. Blood pressure elevated since admission - continue to monitor as patient had not received her medications during prior readings. B12 and folate pending. Will check TSH in AM. Upon discharge, patient's care will be returned to her PCP, Dr. Coley. Patient is a full code. 12/08/17 Psych: Decrease Effexor XR to 37.5mg PO as patient believes it is causing her HAs and concern for bipolar disorder. Have discussed possibility of Li as patient reports hx of extreme anger, persistent/chronic SI. 12/09/17 Psych: SLUMS completed and patient scored 29/30. Will order Lidocaine patch for lower back, nicotine patch in addition to gum per patient request. Plan to discontinue Effexor tomorrow, start [place] 150mg PO daily at dinnertime.
[2017-12-11] MEDS ORDERED: LISINOPRIL/HCTZ 20/12.5 MG TABLET PO ONE (12:45)
--- NOTE | 2017-12-11 16:32 | Neuropsych Progress Note ---
[facility] Subjective Date: 12/11/17 - Sujective/Severity of Illness Medications: Hydrocodone Bitart/Acetaminophen ([place] 7.5/325) 1 tab PO Q6H PRN PRN Reason: Pain Last Admin: 12/11/17 06:35 Dose: 1 tab Dipyridamole/Aspirin (Aggrenox) 1 cap PO BID [facility] Last Admin: 12/11/17 09:27 Dose: 1 cap Lisinopril/HCTZ (Prinzide 20/12.5) 2 tab PO DAILY [facility] Haloperidol (Haldol) 0.5 mg PO Q6H PRN PRN Reason: Extreme agitation Haloperidol Lactate (Haldol) 0.5 mg IM Q6H PRN PRN Reason: Extreme agitation Lidocaine (Lidoderm) 1 patch TOP DAILY [facility] Last Admin: 12/11/17 09:27 Dose: 1 patch Lidocaine HCl/Dextrose (Lidoderm Patch Removal) 1 removal TOP 2100 [facility] Last Admin: 12/11/17 09:15 Dose: Not Given [place] Carbonate ([place]) 300 mg PO 18 [facility] Last Admin: 12/10/17 17:47 Dose: 300 mg Lorazepam (Ativan) 0.5 mg PO Q6H PRN PRN Reason: Extreme agitation Last Admin: 12/11/17 00:04 Dose: 0.5 mg Lorazepam (Ativan Inj) 0.5 mg IM Q6H PRN PRN Reason: Extreme agitation Lorazepam (Ativan) 0.5 mg PO BID [facility] Last Admin: 12/11/17 09:33 Dose: 0.5 mg Magnesium Hydroxide (Mom) 30 ml PO DAILY PRN PRN Reason: Constipation Nicotine (Nicoderm) 14 mg TD DAILY [facility] Last Admin: 12/11/17 09:28 Dose: 14 mg Nicotine (Nicotine Patch Removal) 1 removal TD DAILY [facility] Last Admin: 12/11/17 09:29 Dose: 1 removal Nicotine Polacrilex (Nicorette) 2 mg BC Q1H PRN Last Admin: 12/11/17 12:59 Dose: 2 mg Pantoprazole Sodium (Protonix) 20 mg PO ACB [facility] Last Admin: 12/11/17 06:23 Dose: 20 mg Polyethylene Glycol (Miralax) 17 gm PO DAILY [facility] Last Admin: 12/11/17 11:00 Dose: Not Given Senna/Docusate Sodium (Senna Plus Tablet) 1 tab PO BID PRN PRN Reason: Constipation Subjective: Patient seen and chart reviewed. Nursing reports pt is doing well. Sleeping well and has a good appetite. On face to face the pt states she is feeling better She reports her mood is "up and down" but overall it is improved. She remains anxious at times. Denies S/I. Tolerating meds Start Time: 11:45 Stop Time: 12:00 Mental Status Exam Vitals: Last Vital Signs Temp 98.2 F 12/11/17 08:00 Pulse 88 12/11/17 08:00 Resp 16 12/11/17 11:00 BP 162/73 H 12/11/17 08:00 Pulse Ox 98 12/11/17 08:00 Height: 1.57 m Weight: 61.8 kg - Mental Status Exam Muscle Strength/Tone: Normal Dressing: Casual Grooming: Disheveled Attitude: Cooperative Motor Activity: Normal Eye Contact: Good Speech: Other (Very talkative, not pressured - unclear what baseline is) Volume: Normal Rhythm: Appropriate Rhythm Orientation: Oriented X4 Mood: Depressed Rate of Thoughts: Appropriate Rate Thought Organization: Organized Associations: Intact Abstract Reasoning: Intact, able to abstract Thought Content: Somatic Concerns Perception/Psychotic: Perception Normal Current Hallucinations: Visual (shadows), Auditory, Other (Does not appear to be responding to internal stimuli though reports this) Language: Naming Intact Fund of Knowledge: Cookie aware current events Memory: Grossly Intact Suicidal Ideation: Intermittent Homicidal Ideation: Denies Insight: Limited Judgement: Limited Impulse Control: Fair - Laboratory Result Diagrams: 12/08/17 07:15 12/08/17 07:15 Assessment and Plan (1) Suicidal ideation Current visit: Yes Status: Acute (2) Depressive disorder Problem details: R/O MDD, recurrent, severe, with psychotic features R/O Bipolar disorder, MRE depressed, with psychotic features Current visit: Yes Status: Acute Hospital Course Summary Disclaimer: The visit summary below is not to be considered part of the above Progress Note. Hospital Course: Plan - 12/07/17: Agree with admission to [facility] for further psychiatric evaluation and care. Hospitalist service consulted for medical management. Provide safe and supportive environment. Monitor closely given suicidal ideation. Suspect leukopenia and thrombocytopenia are chronic secondary to chronic hepatitis. Will monitor periodically throughout admission. Encourage oral fluid intake given hypernatremia. KCl 20 mEq po given now for hypokalemia. Recheck BMP in AM. Nicorette gum provided per patient request. She refused patch. Continue home aggrenox, atenolol, lisinopril/hctz. Monitor blood pressure closely. Blood pressure elevated since admission - continue to monitor as patient had not received her medications during prior readings. B12 and folate pending. Will check TSH in AM. Upon discharge, patient's care will be returned to her PCP, Dr. Coley. Patient is a full code. 12/08/17 Psych: Decrease Effexor XR to 37.5mg PO as patient believes it is causing her HAs and concern for bipolar disorder. Have discussed possibility of Li as patient reports hx of extreme anger, persistent/chronic SI. 12/09/17 Psych: SLUMS completed and patient scored 29/30. Will order Lidocaine patch for lower back, nicotine patch in addition to gum per patient request. Plan to discontinue Effexor tomorrow, start [place] 150mg PO daily at dinnertime. 12/11/17 Psych note- Continue current care
[2017-12-11] MEDS: LITHIUM CARBONATE 300 MG CAPSULE PO SCH (18:28)
[2017-12-11 21:26] VITALS: RESP 16
[2017-12-12] MEDS: HYDROCODONE/APAP 7.5 MG/325 MG TABLET PO PRN ×3 (03:52→20:34)
[2017-12-12] MEDS: PANTOPRAZOLE 20 MG TABLET PO SCH (06:22)
[2017-12-12] MEDS: ASPIRIN/DIPYRIDAMOLE 25 MG/200 MG CAPSULE PO SCH ×3 (09:43→20:30)
[2017-12-12] MEDS: LIDOCAINE 5% PATCH TOP SCH (09:43)
[2017-12-12] MEDS: LISINOPRIL/HCTZ 20/12.5 MG TABLET PO SCH (09:44)
[2017-12-12] MEDS: NICOTINE 14 MG PATCH TD SCH (09:45)
[2017-12-12] MEDS: POLYETHYL GLYCOL 3350 17gm PACKET PO SCH (09:46)
[2017-12-12] MEDS: NICOTINE PATCH REMOVAL TD SCH (09:46)
[2017-12-12] MEDS: LORazepam 0.5 MG TABLET PO SCH ×2 (09:51→20:27)
--- NOTE | 2017-12-12 11:21 | Neuropsych Progress Note ---
[facility] Subjective Date: 12/12/17 - Sujective/Severity of Illness Medications: Hydrocodone Bitart/Acetaminophen ([place] 7.5/325) 1 tab PO Q6H PRN PRN Reason: Pain Last Admin: 12/12/17 09:54 Dose: 1 tab Dipyridamole/Aspirin (Aggrenox) 1 cap PO BID [facility] Last Admin: 12/12/17 09:43 Dose: 1 cap Lisinopril/HCTZ (Prinzide 20/12.5) 2 tab PO DAILY [facility] Last Admin: 12/12/17 09:44 Dose: 2 tab Haloperidol (Haldol) 0.5 mg PO Q6H PRN PRN Reason: Extreme agitation Haloperidol Lactate (Haldol) 0.5 mg IM Q6H PRN PRN Reason: Extreme agitation Lidocaine (Lidoderm) 1 patch TOP DAILY [facility] Last Admin: 12/12/17 09:43 Dose: 1 patch Lidocaine HCl/Dextrose (Lidoderm Patch Removal) 1 removal TOP 2100 [facility] Last Admin: 12/11/17 21:42 Dose: 1 removal [place] Carbonate ([place]) 300 mg PO 18 [facility] Last Admin: 12/11/17 18:28 Dose: 300 mg Lorazepam (Ativan) 0.5 mg PO Q6H PRN PRN Reason: Extreme agitation Last Admin: 12/11/17 00:04 Dose: 0.5 mg Lorazepam (Ativan Inj) 0.5 mg IM Q6H PRN PRN Reason: Extreme agitation Lorazepam (Ativan) 0.5 mg PO BID [facility] Last Admin: 12/12/17 09:51 Dose: 0.5 mg Magnesium Hydroxide (Mom) 30 ml PO DAILY PRN PRN Reason: Constipation Nicotine (Nicoderm) 14 mg TD DAILY [facility] Last Admin: 12/12/17 09:45 Dose: 14 mg Nicotine (Nicotine Patch Removal) 1 removal TD DAILY [facility] Last Admin: 12/12/17 09:46 Dose: 1 removal Nicotine Polacrilex (Nicorette) 2 mg BC Q1H PRN Last Admin: 12/12/17 09:54 Dose: 2 mg Pantoprazole Sodium (Protonix) 20 mg PO ACB [facility] Last Admin: 12/12/17 06:22 Dose: 20 mg Polyethylene Glycol (Miralax) 17 gm PO DAILY [facility] Last Admin: 12/12/17 09:46 Dose: 17 gm Senna/Docusate Sodium (Senna Plus Tablet) 1 tab PO BID PRN PRN Reason: Constipation Subjective: Patient seen and chart reviewed. Nursing reports pt is doing well. Sleeping well and has a good appetite. On face to face the pt states her mood is up and down. She reports she continues to deal with anxiety. She states she wants to go em and Wednesday and feels she is safe for D/C. Denies S/I. Tolerating meds Start Time: 09:30 Stop Time: 09:45 Mental Status Exam Vitals: Last Vital Signs Temp 98.2 F 12/12/17 07:32 Pulse 93 12/12/17 07:32 Resp 16 12/12/17 07:32 BP 161/71 H 12/12/17 07:32 Pulse Ox 98 12/12/17 07:32 Height: 1.57 m Weight: 61.8 kg - Mental Status Exam Muscle Strength/Tone: Normal Dressing: Casual Grooming: Disheveled Attitude: Cooperative Motor Activity: Normal Eye Contact: Good Speech: Other (Very talkative, not pressured - unclear what baseline is) Volume: Normal Rhythm: Appropriate Rhythm Orientation: Oriented X4 Mood: Depressed Rate of Thoughts: Appropriate Rate Thought Organization: Organized Associations: Intact Abstract Reasoning: Intact, able to abstract Thought Content: Somatic Concerns Perception/Psychotic: Perception Normal Current Hallucinations: Visual (shadows), Auditory, Other (Does not appear to be responding to internal stimuli though reports this) Language: Naming Intact Fund of Knowledge: Cookie aware current events Memory: Grossly Intact Suicidal Ideation: Intermittent Homicidal Ideation: Denies Insight: Limited Judgement: Limited Impulse Control: Fair - Laboratory Result Diagrams: 12/08/17 07:15 12/08/17 07:15 Assessment and Plan (1) Suicidal ideation Current visit: Yes Status: Acute (2) Depressive disorder Problem details: R/O MDD, recurrent, severe, with psychotic features R/O Bipolar disorder, MRE depressed, with psychotic features Current visit: Yes Status: Acute Hospital Course Summary Disclaimer: The visit summary below is not to be considered part of the above Progress Note. Hospital Course: Plan - 12/07/17: Agree with admission to [facility] for further psychiatric evaluation and care. Hospitalist service consulted for medical management. Provide safe and supportive environment. Monitor closely given suicidal ideation. Suspect leukopenia and thrombocytopenia are chronic secondary to chronic hepatitis. Will monitor periodically throughout admission. Encourage oral fluid intake given hypernatremia. KCl 20 mEq po given now for hypokalemia. Recheck BMP in AM. Nicorette gum provided per patient request. She refused patch. Continue home aggrenox, atenolol, lisinopril/hctz. Monitor blood pressure closely. Blood pressure elevated since admission - continue to monitor as patient had not received her medications during prior readings. B12 and folate pending. Will check TSH in AM. Upon discharge, patient's care will be returned to her PCP, Dr. Coley. Patient is a full code. 12/08/17 Psych: Decrease Effexor XR to 37.5mg PO as patient believes it is causing her HAs and concern for bipolar disorder. Have discussed possibility of Li as patient reports hx of extreme anger, persistent/chronic SI. 12/09/17 Psych: SLUMS completed and patient scored 29/30. Will order Lidocaine patch for lower back, nicotine patch in addition to gum per patient request. Plan to discontinue Effexor tomorrow, start [place] 150mg PO daily at dinnertime. 12/11/17 Psych note- Continue current care 12/12/17 Psych note- Pt slightly improved. Continue current care
[2017-12-12] MEDS ORDERED: LISINOPRIL/HCTZ 20/12.5 MG TABLET PO ONE (12:34)
[2017-12-12] MEDS: LITHIUM CARBONATE 300 MG CAPSULE PO SCH (20:27)
[2017-12-12] MEDS: LIDOCAINE PATCH REMOVAL TOP SCH (20:28)
[2017-12-12] MEDS: LORazepam 0.5 MG TABLET PO PRN (23:28)
[2017-12-13] MEDS: PANTOPRAZOLE 20 MG TABLET PO SCH (05:54)
[2017-12-13 07:15] VITALS: BP 167/71; PULSE 89; TEMP 98; O2SAT 97
[2017-12-13] MEDS: LORazepam 0.5 MG TABLET PO SCH (10:26)
[2017-12-13] MEDS: LIDOCAINE 5% PATCH TOP SCH (10:26)
[2017-12-13] MEDS: ASPIRIN/DIPYRIDAMOLE 25 MG/200 MG CAPSULE PO SCH (10:26)
[2017-12-13] MEDS: NICOTINE PATCH REMOVAL TD SCH (10:27)
[2017-12-13] MEDS: NICOTINE 14 MG PATCH TD SCH (10:27)
[2017-12-13] MEDS: LISINOPRIL/HCTZ 20/12.5 MG TABLET PO SCH (10:27)
[2017-12-13] MEDS: POLYETHYL GLYCOL 3350 17gm PACKET PO SCH (10:27)
[2017-12-13] MEDS: HYDROCODONE/APAP 7.5 MG/325 MG TABLET PO PRN (11:27)
== END 2017-12-13 15:26 | disposition home or self-care (01) | DRG 885 ==
LOC: ED 18:52 → GEN 23:02
PROVIDERS: ADMIT Psychiatry & Neurology Psychiatry; ATTEND Psychiatry & Neurology Psychiatry